=== PATIENT | male | born 1990 | race Caucasian/White ===

== ENCOUNTER 2016-11-05 11:13 | Emergency (ER) | payer MEDICAID ==
[~2016-11-05] VITALS: Ht 182.9 cm; Wt 114.3 kg
--- NOTE | 2016-11-05 12:38 | [facility]gent Treatment [facility] Report ---
History of Present Issue Date/Time Seen by Provider 11/05/16 1222 Visit Reason Pt arrived:Walked Presenting Problem:PT C/O SNEEZING, WATERY EYES, AND HEAD CONGESTION X3 DAYS Location if Accident: Onset of symptoms date/time:/ or onset unknown for:MEDICAL HX UNKNOWN Have you (or family members/close friends) recently traveled outside the [place]? N If Yes, where/when: Have you had exposure to infectious disease within the past month? TB? Other? Specify: Here w/ mom requesting steroid shot for persistant allergies. "He is just like his dad and that is all that works". c/o persistant runny nose, nasal congestion , sneezing "over 30 times a day", itchy eyes x "weeks and weeks". Was seen in clinic over 2 weeks ago for same symptoms. Dx allergies. Prescribed claritin and flonase. Claritin hasn't helped. Didn't try flonase. "They have told me to take that before but it taste like hong and gets in my throat. i don't like it.". reports trying "everything available over the counter" but can't recall anything tried other than claritin D. Adament a steroid injection is needed and mom even reports "I know about the risk and side effects but he is like his dad and won't get better without it." Denies fever, aches, chills. Source patient, family Exam Limitations no limitations ALLERGIES Coded Allergies: No Known Allergies (10/20/16) Home Medications Active Scripts Fluticasone Propionate (Flonase Allergy Relief) 9.9 ML NS DAILY 14 Days Prov: 10/20/16 Loratadine (Claritin 10MG) 10 MG PO DAILY 14 Days Prov: 10/20/16 MUPIROCIN 2% (Bactroban Oint) 1 DELL TP BID #1 TUBE Prov: 08/29/15 Amoxicillin/Potassium Clav (Augmentin 875-125 Tablet) 1 EACH PO BID #20 TAB Prov: 08/29/15 Reported Medications Risperidone 1 PO QHS Atomoxetine Hydrochloride (Strattera) 1 PO DAILY Betamethasone Valerate (Betamethasone Virginie.) History Medical History General CAD? No Angina: No ID: No Hypertension? No Hyperlipidemia? No CHF? No DVT? No PE? No COPD? No Asthma? No Anemia? No GERD? No Gastric ulcers? No GI Bleed? No Hernia? No Thyroid Problems? No Hypothyroidism? No CVA? No Seizures? No Diabetes? No Renal Insuffiency? No UTI? No Stones? No BPH? No GB Disease: No Nephritic Syndrome? No Asplenia? No Hepatitis? No Sickle Cell Disease? No Arthritis? No Migraines? No Cataracts? No Glaucoma? No MRSA? No HIV? No TB? No Anxiety? No Depression? No Cancer? No More? No Immunization HX DT/Tetanus Unknown Flu REFUSES Pneumonia REFUSES Surgical Hx Previous Surgery?Y WISDOM TEETH BACK/CYST Family History Family HX Diabetes No CAD No Hypertension Yes Hyperlipidemia Yes Cancer No TB No Social History Smoking Hx Smoker: Current Every Day Smoker Tobacco: Yes Type Cigarettes Packs/day < 1 Pack Alcohol Alcohol: No Review of Systems All Other Systems Reviewed and Negative Constitutional see HPI Eyes see HPI, drainage (watery, no redness), denies pain, denies photophobia, denies vision change ENT see HPI. denies: ear pain, throat pain, throat swelling. Respiratory denies cough Gastrointestinal denies no symptoms reported Skin denies rash Psychiatric/Neurological denies headache Physical Exam Vital Signs Vital Signs Date Time Temp Pulse Resp B/P Pulse O2 O2 Flow FiO2 Ox Delivery Rate 11/05 1332 97.9 95 20 138/81 98 11/05 1205 97.9 95 20 138/81 98 General Appearance normal appearance, no apparent distress Eye Exam - bilateral eye normal exam Ear, Nose, Throat normal ENT inspection (x/ mild nasal congestion) Neck non-tender, supple Respiratory Status No: respiratory distress, productive cough, non productive cough. Lung Sounds anterior: lungs clear. posterior: lungs clear. bilateral: lungs clear. Cardiovascular regular rate/rhythm, no peripheral edema, no murmur Neurologic alert, oriented x 3 Mental status normal mood/affect Skin normal color, warm/dry Lymphatic no adenopathy Medical Decision Making LABS/Meds/Orders Pt receiving controlled substance in ED? No Results/Orders Current Medication Orders Sig/Rayo Start time Last Medication Dose Route Stop Time Status Admin Methylprednisolone 0 .STK-MED ONE 11/05 1253 DC Acetate IM Methylprednisolone 40 MG ONCE ONE 11/05 1245 DC 11/05 Acetate IM 11/05 1246 1326 Departure Departure Time of Disposition 1233 Disposition DC Home or Self Care(routine) Clinical Impression Primary Impression: Allergic rhinitis Qualifiers: Chronicity: acute Allergic rhinitis trigger: unspecified Allergic rhinitis seasonality: seasonal Qualified Code: J30.2 - Other seasonal allergic rhinitis Condition STABLE Referrals ANDRES BEND[facility] in [facility] for new, worsening, persistant symptoms despite treatment Patient Instructions DI for Allergic Rhinitis Additional Instructions * Steroids are not the treatment of choice for allergies. It does help calm them down but they will return. Steroids have side effects and risks as we discussed. They are not to be used over and over for allergy symptoms. Consider steroids like a band-aid for your problem. if you don't take medication to treat your allergies, the symptoms will return. * If claritin didn't help, try zyrtec daily for 7-14 days. You can also add a nasal steroid spray (flonase, nasonex, nasocort) like was previously recommended. I understand it smells and taste like hong but you only have to do it once a day and can drink immediately afterwards. * Avoid known allergens * If still no improvement, consider follow up with local pilot can router, Dr. Bender. Discharge Counseling Counseled pt/family regarding diagnosis, medications/RX, home care, follow up needs Prescriptions Current Visit Scripts CETIRIZINE HCL (Cetirizine 10MG) 10 MG PO DAILY #30 TAB at 1100
[2016-11-05 13:32] VITALS: BP 138/81
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
--- OUTSIDE RECORDS SUMMARY | 2016-11-28 03:30 | External Medical Summary Rpt ---
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 Name Role Phone JACQUELINALEKSANDR JULIANN, ELIO Unavailable Unavailable JUAN A [place], Unavailable Unavailable JUAN A [facility] Unavailable Unavailable [facility] MIS, SAAVEDRA MIS Unavailable Unavailable [facility] Unavailable [place]available [place] [facility] [place] [facility] Unavailable [place] [facility] JAMIE ANGELES, Unavailable Unavailable JAMIE ANGELES STEPHANIE TONYA, STEPHANIE Unavailable Unavailable TONYA HAAKE BRA, HAAKE BRA Unavailable Unavailable HAAKE BRA, HAAKE BRA Unavailable Unavailable [facility], [facility] BNOI NAN, BONI Unavailable Unavailable NAN BONI NAN, BONI Unavailable Unavailable [facility] Un[facility] Un[facility], [facility] Unavailable Unavailable [facility], [facility] Unavailable Unavailable [facility], [facility] Unavailable Unavailable SERVICES, [facility] CAMILLE LAWRENCE, Unavailable Unavailable JOSSUE CAMILO JR, JR Unavailable Unavailable F, JOSSUE OBRIEN JR [facility], Unavailable [facility]available [facility], [facility] PUJA ROSE, Unavailable Unavailable PUJA LUO ORSE, Unavailable Unavailable JONATHANSTAD ROSE KYLE WANG, Unavailable [...] 11-16-2015 [facility] [place] BREATHING INTERNAL MED [id number] OPEN BITE 08-29-2015 [facility] INDEX [facility] FINGER W/O INC DAMAGE NAIL INIT [id number] OPEN BITE 08-29-2015 [facility] UNS FINGER PHYSICIANS, W/O DAMAGE [facility] NAIL INITIAL 1104 DERMATOPHYT 01-27-2014 [facility] FOOT INTERNAL MED 6829 CELLULITIS 01-27-2014 [facility] ABSCESS [facility] OF INTERNAL UNSPECIFIED MED SITE 57083 UNSPECIFIED 10-14-2013 [facility] CONJUNCTIVI INTERNAL TIS MED 4778 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 486 PNEUMONIA, 07-26-2013 HAAKE BRA ORGANISM UNSPECIFIED 7862 COUGH 07-26-2013 [facility] 6850 PILONIDAL 04-11-2012 [facility] CYST WITH [facility] ABSCESS INC 6851 PILONIDAL 03-28-2012 [facility] CYST ANESTH OF WITHOUT THE BLUE MENTION OF ABSCESS 460 ACUTE 07-20-2011 [facility] RODRIGUEZ NASOPHARYNG ITIS 490 BRONCHITIS 07-20-2011 [facility] RODRIGUEZ NOT SPECIFIED ACUTE OR CHRONIC 5589 OTH&UNSPEC 05-08-2011 [facility] RODRIGUEZ NONINFECTIO US GASTROENTER ITIS&COLITI S V5831 ENCOUNTER 02-14-2011 [facility] JULITEA SERVICES SURGICAL WOUND DRESSING 10013 ABDOMINAL 11-08-2010 [facility] PAIN RIGHT [place] UPPER INTERNAL QUADRANT MEDI 5758 OTHER 10-06-2009 [facility] SPECIFIED [facility] DISORDER OF INC GALLBLADDER 5759 UNSPECIFIED 10-06-2009 [place] [facility] IMAGING ASS GALLBLADDER 58433 ESOPHAGEAL 09-19-2009 [facility] REFLUX [facility] INC 7873 FLATULENCE 09-19-2009 [facility] ERUCTATION [facility] AND GAS INC PAIN 5283 CELLULITIS 02-04-2009 [facility] [place] [place] OF ORAL INTERNAL SOFT MED TISSUES 35975 REGULAR 01-21-2009 J[facility] ASTIGMATISM VISION 3829 UNSPECIFIED [...] 17 17 98 E 5 55 PH ND AR OP MA CY 50 OF MC [...] UM 65 4- 8- 00 SI 46 DC ve 04 [address] 03 11 11 JR 1 PH 40 AR WI MA LL MG CY IA M CA OF F PS UL CY E NT HI AN A AD 54 10 10 0 30 30 EA 24 MC Ac DE 09 -2 -[address] 67 KE ti RA 20 4- 6- 00 SI 38 DC ve LL 39 20 20 DE E 10 11 11 JR XR 1 PH AR WI 30 MA LL CY IA MG M OF F CA PS CY UL NT E HI AN A RI 50 10 10 3 30 30 EA 24 MC Ac SP 45 -2 -[address] 63 KE ti ER 80 4- 4- 00 SI 23 DC ve ID 59 20 20 DE E [...] RA 20 6- 6- 00 SI 61 DC ve LL 39 20 20 DE E 10 11 11 JR XR 1 PH AR WI 30 MA LL CY IA MG M OF F CA PS CY UL NT E HI AN A RI 50 07 07 3 30 30 EA 23 MC Ac SP 45 -1 -[address] 30 KE ti ER 80 4- 4- 00 SI 45 DC ve ID 59 20 20 DE E ON 16 11 11 JR E 0 PH 0. AR WI 5 MA LL MG CY IA M TA OF F BL ET CY NT HI AN A NE 00 07 07 3 30 30 EA 23 MC Ac XI 18 -1 -[address] 30 KE ti UM 65 4- 4- 00 SI 46 DC ve 04 [address] [...] RA 20 4- 4- 00 SI 30 DC ve LL 39 20 20 DE E [...] ti RA 20 9 6 SI 69 DC ve LL 39 20 20 DE E 10 10 10 JR XR 1 PH AR WI 30 MA LL CY IA MG M OF F CA CY PS NT UL HI E AN A AD 54 12 01 00 30 30 EA 15 MC Ac DE 2 -[address] 76 KE ti RA 20 SI 17 DC ve LL 39 20 20 DE E 10 09 10 JR XR 1 PH AR WI 30 MA LL CY IA MG M OF F CA CY PS NT UL HI E AN A ST 00 12 01 00 30 30 EA 15 MC Ac RA 00 -2 -[address] 74 KE ti TT 23 8 4 00 SI 69 DC ve ER 22 20 20 DE E A 93 09 10 JR 40 0 PH AR WI MG MA LL CY IA CA M PS OF F UL CY E NT HI AN A RI 50 12 01 00 30 30 EA 15 Ac SP 45 -2 -[address] 74 KE ti ER 80 8- 4 00 SI 70 DC ve ID 59 20 20 DE E ON 16 09 10 JR E 0 PH 0. AR WI 5 MA LL MG CY IA M TA OF F BL CY ET NT HI AN A MU 00 12 12 00 22 10 EA 15 Ac PI 09 -1 -[address] 64 KE ti RO 31 8- 00 SI 13 DC ve CI 01 20 20 DE E N 04 09 09 JR 2% 2 PH AR WI OI MA LL NT CY IA ME M NT OF F CY NT HI AN A 00 12 12 00 20 10 EA 15 MC Ac 90 -1 -[address] 64 KE ti 42 8- - 00 SI 12 DC ve 72 20 20 DE E 54 [...] -C 32 7- 3- 00 SI 04 DC ve LA 27 20 20 DE E V 53 09 09 JR 87 4 PH 5- AR WI 12 MA LL 5 CY IA MG M OF F TA CY BL NT ET HI AN A AD 54 11 11 00 30 30 EA 15 MC Ac DE 09 -0 -[address] 04 KE ti RA 20 9- 9- 00 SI 70 DC ve LL 39 20 20 DE E 10 09 09 JR XR 1 PH AR WI 30 MA LL CY IA MG M OF F CA CY PS NT UL HI E AN A AD 54 09 10 00 30 30 EA 14 MC Ac DE 09 -2 -[address] 43 KE ti RA 20 6- 8- 00 SI 63 DC ve LL 39 20 20 DE E 10 09 09 JR XR 1 PH AR WI 30 MA LL CY IA MG M OF F CA CY PS NT UL HI E AN A AD 54 08 08 00 30 30 EA 13 MC Ac DE 09 -1 -[address] 91 KE ti RA 20 9- 7- 00 SI 63 DC ve LL 39 20 20 DE E 10 09 09 JR XR 1 PH AR WI 30 MA LL CY IA MG M OF F CA CY PS NT UL HI E AN A ST 00 08 08 00 30 30 EA 13 MC Ac RA 00 -1 -[address] 84 KE ti TT 23 4- 7- 00 SI 93 DC ve ER 22 20 20 DE E A 93 09 09 JR 40 0 PH AR WI MG MA LL CY IA CA M PS OF F UL CY E NT HI AN A RI 50 08 08 00 30 30 EA 13 MC Ac SP 45 -1 -[address] 84 KE ti ER 80 4- 7- 00 SI 94 DC ve ID 59 20 20 DE E ON 16 09 09 JR E 0 PH 0. AR WI 5 MA LL MG CY IA M TA OF F BL CY ET NT HI AN A AD 54 06 07 00 30 30 EA 13 MC Ac DE 09 -1 -[address] 18 KE ti RA 20 8- 2- 00 SI 66 DC ve LL 39 20 20 DE E 10 09 09 JR XR 1 PH AR WI 30 MA LL CY IA MG M OF F CA CY PS NT UL HI E AN A RI 50 06 06 00 30 30 EA 13 Ac SP 45 -0 -[address] 04 KE ti ER 80 7- 8- 00 SI 65 DC ve ID 59 20 20 DE E ON 16 09 09 JR E 0 PH 0. AR WI 5 MA LL MG CY IA M TA OF F BL CY ET NT HI AN A ST 00 01 06 02 30 30 EA 11 Ac RA 00 -1 -[address] 12 KE ti TT 23 6- 8- 00 SI 68 DC ve ER 22 20 20 DE E A 93 09 09 JR 40 0 PH AR WI MG MA LL CY IA CA M PS OF F UL CY E NT HI AN A AD 54 05 05 00 30 30 EA 12 Ac DE 09 -0 -[address] 65 KE ti RA 20 7- 1- 00 SI 25 DC ve LL 39 20 20 DE E 10 09 09 JR XR 1 PH AR WI 30 MA LL CY IA MG M OF F CA CY PS NT UL HI E AN A ST 00 01 05 01 30 30 EA 11 Ac RA 00 -1 -[address] 12 KE ti TT 23 6- 7- 00 SI 68 DC ve ER 22 20 20 DE E A 93 09 09 JR 40 0 PH AR WI MG MA LL CY IA CA M PS OF F UL CY E NT HI AN A RI 50 05 05 02 30 30 EA 98 Ac SP 45 -2 -[address] 05 KE ti ER 80 0- 7- 00 SI 91 DC ve ID 59 20 20 DE E ON 08 09 JR E 0 PH 0. AR WI 5 MA LL MG CY IA M TA OF F BL CY ET NT HI AN A DE 00 04 04 00 30 30 EA 12 Ac XT 55 -0 -[address] 21 KE ti RO 50 6- 3- 00 SI 75 DC ve AM 78 20 20 DE E P- 90 09 09 JR AM 2 PH PH AR WI ET MA LL CY IA ER M OF F 30 CY NT MG HI AN CA A P NA 00 03 03 00 17 17 EA 11 Ac SO 08 -0 -[address] 73 KE ti NE 51 3- 2- 00 SI 06 DC ve X 28 20 20 DE E 50 80 09 09 JR 1 PH MC AR WI G MA LL NA CY IA SA M L OF F SP CY RA NT Y HI AN A AD 54 02 03 00 30 30 EA 11 MC Ac DE 09 -2 -[address] 60 KE ti RA 20 4- 2- 00 SI 65 DC ve LL 39 20 20 DE E 10 09 09 JR XR 1 PH AR WI 30 MA LL CY IA MG M OF F CA CY PS NT UL HI E AN A 67 03 03 00 20 10 EA 11 MC Ac 25 -0 -[address] 73 KE ti 30 3- 2- 00 SI 07 DC ve 00 20 20 DE E 76 09 09 JR 0 PH AR WI MA LL CY IA M OF F CY NT HI AN A 00 02 02 00 3. 3 EA 11 MC Ac 09 -1 -[address] 50 KE ti 39 6- 6- 0 SI 39 DC ve 10 20 20 DE E 72 09 09 JR 9 PH AR WI MA LL CY IA M OF F CY NT HI AN A AD 54 01 01 00 30 30 EA 11 MC Ac DE 09 -1 -[address] 12 KE ti RA 20 6- 0- 00 SI 67 DC ve LL 39 20 20 DE E 10 09 09 JR XR 1 PH AR WI 30 MA LL CY IA MG M OF F CA CY PS NT UL HI E AN A SM 49 01 01 00 59 1 EA 11 MC Ac 34 -2 -[address] 21 KE ti LI 80 3- 0- 00 SI 44 DC ve CE 46 20 20 DE E [...] TT 23 6- 0- 00 SI 68 DC ve ER 22 20 20 DE E [...] RA 20 8- 8- 00 SI 37 DC ve LL 39 20 20 DE E 10 08 08 JR XR 1 PH AR WI 30 MA LL CY IA MG M OF F CA CY PS NT UL HI E AN A BE 00 10 11 00 60 5 EA 10 MC Ac TA 16 -3 -[address] 07 KE ti ME 80 0- 7- 00 SI 35 DC ve TH 04 20 20 DE E 16 08 08 JR ON 0 PH E AR WI VA MA LL CY IA 0. M 1% OF F CY LO NT TI HI ON AN A MU 00 10 11 00 22 7 EA 99 MC Ac PI 09 -2 -[address] 96 KE ti RO 31 2- 7- 00 SI 61 DC ve CI 01 20 20 DE E N 04 08 08 JR 2% 2 PH AR WI OI MA LL NT CY IA ME M NT OF F CY NT HI AN A AD 54 10 11 00 30 30 EA 10 MC Ac DE 09 -2 -[address] 06 KE ti RA 20 9- 7- 00 SI 25 DC ve LL 39 20 20 DE E [...] DOS Code Location Performer Comment IM ADM 12961 [facility] PRQ ID 6 [facility] SUBQ/IM INC INC NJXS 1 VACCINE RADIOLOGI 89738 HAAKE BRA HARIK BRA C EXAM 4 CHEST 2 VIEWS FRONTAL&L [facility] [address] BESSON BESSON DISCHARGE 3 JULIANN JULIANN DAY MANAGEMEN T 30 MIN/< ANES 61635 [facility] INTEG 3 ANESTH THUY MUSC & OF THE NRV HEAD BLUE NECK&POST ERIOR TRUNK INCISION 82088 PUJA PUJA & 3 ROSE ROSE DRAINAGE PILONIDAL CYST COMPLICAT ED SBSQ 91116 [facility] 3 JR MELINDA LAWRENCE CARE/DAY 25 MINUTES INCISION 8603 [facility] OF 3 [facility] PILONIDAL INC INC SINUS OR CYST INITIAL 10516 [facility] 3 JR MELINDA RIVAS MELINDA CARE/DAY 50 MINUTES INCISION 72500 JONATHANBRADY PUJA & 1 ROSE ROSE DRAINAGE ABSCESS SIMPLE/SI NGLE HEPATBL 20456 [facility] DUX SYS 0 [facility] [place] [address] [facility] ABDOMINAL 0 [facility] REAL INC INC TIME W/IMAGE DOCUMENTA TION SUSCEPTIB 78477 [facility] LTY STDY 9 [facility] ANTIMICRB INC INC IAL MICRO/AGA R DILUTJ SUSCEPTIB 11556 [facility] ILITY 9 [facility] STUDY INC INC ANTIMICRO BIAL DISK METHOD CUL BACT 80011 [facility] XCPT 9 [facility] URINE INC INC BLOOD/STO OL AEROBIC ISOL CUL BACT 45332 [facility] AEROBIC 9 [facility] ADDL INC INC METHS DEFINITIV E EA ISOL OPHTH 22381 JEN WANG, [facility] 9 VISION KYLE M XM&EVAL ALYSON NEW PT 1/> VST Encounters Encounter Start End Date Code Location Performer Type Date OFFICE 58595 [facility] OUTPATIEN 6 6 [facility] T VISIT INTERNAL 15 MED MINUTES EMERGENCY 03032 LETA BROWN 6 6 [facility]ICIAN [facility] T VISIT MODERATE SEVERITY EMERGENCY 01989 [facility] 6 6 [facility] DEPARTMEN INC T VISIT LOW/MODER SEVERITY [facility]OSP[facility] - 6 6 [facility] OUTPATIEN INC T OFFICE 88701 [facility] 4 [facility] T VISIT INTERNAL 15 MED MINUTES OFFICE 48133 [facility] JAMIE OUTPATIEN 4 4 [facility] ANGELES T VISIT INTERNAL 15 MED MINUTES EMERGENCY 02813 HAAKE BRA HAAKE BRA 4 4 [facility] T VISIT HIGH/URGE NT SEVERITY OFFICE 65695 [facility] AYALA OUTPATIEN 3 3 [facility] T VISIT 15 MINUTES [facility] - 3 3 [facility] OUTPATIEN INC T OFFICE 99072 [facility] 3 3 [facility] T VISIT 5 INC MINUTES OFFICE 76438 [facility]PAT[facility]EN 3 3 [facility] T VISIT 5 INC MINUTES [facility]OSPITAL [facility] - 3 3 [facility] OUTPATIEN INC T [facility] - 3 3 [facility] OUTPATIEN INC T OFFICE 56211 [facility] 3 3 [facility] T VISIT 5 INC MINUTES OFFICE 72338 [facility]EN 3 3 [facility] T VISIT INC 10 MINUTES OFFICE 60331 [facility] 3 3 [facility] T VISIT 5 INC MINUTES [facility]OSPITAL [facility] - 3 3 [facility] OUTPATIEN INC T OFFICE 71963 [facility] 3 3 [facility] T VISIT 5 INC MINUTES [facility]OSP[facility] - 3 3 [facility] OUTPATIEN INC T OFFICE 32390 [facility] 3 3 [facility] T VISIT 5 INC MINUTES [facility]OSPITAL [facility] - 3 3 [facility] OUTPATIEN INC T OFFICE 03727 [facility] 3 3 [facility] T VISIT 5 INC MINUTES [facility]OSPITAL [facility] - 3 3 [facility] OUTPATIEN INC T OFFICE 22706 [facility] 3 3 [facility] T VISIT 5 INC MINUTES [facility]OSP[facility] - 3 3 [facility] OUTPATIEN INC T OFFICE 16061 [facility] 3 3 [facility] T VISIT INC 10 MINUTES OFFICE 02873 [facility] 3 3 [facility] T VISIT 5 INC MINUTES [facility]OSP[facility] - 3 3 [facility] OUTPATIEN INC T [facility] - 3 3 [facility] OUTPATIEN INC T OFFICE 51601 [facility] 3 3 [facility] T VISIT 5 INC MINUTES OFFICE 63679 [facility] 3 3 [facility] T VISIT 5 INC MINUTES [facility]OSP[facility] - 3 3 [facility] OUTPATIEN INC T OFFICE 42390 [facility] 3 3 [facility] T VISIT 5 INC MINUTES [facility]OSPITAL [facility] - 3 3 [facility] OUTPATIEN INC T OFFICE 49459 [facility] 3 3 [facility] T VISIT INC 15 MINUTES [facility]OSPITAL [facility] - 3 3 [facility] OUTPATIEN INC T OFFICE 40494 [facility] OUTPATIEN 3 3 [facility] T VISIT INC 10 MINUTES HOSPITAL [facility] - 3 3 [facility] INPATIENT INC OFFICE 66168 [facility] OUTPATIEN 2 2 NAN NAN T VISIT 15 MINUTES OFFICE 29007 [facility] OUTPATIEN 2 2 NAN NAN T VISIT 15 MINUTES OFFICE 62867 PUJA CASTILLOSTBRADY OUTPATIEN 2 2 ROSE ROSE T VISIT 10 MINUTES EMERGENCY 55806 [facility] 1 1 [facility] DEPARTMEN INC T VISIT LOW/MODER SEVERITY EMERGENCY 80919 ANDRES SOKAN BAB 1 1 EMERGENCY DEPARTMEN SERVICES T VISIT MODERATE SEVERITY [facility]OSPITAL [facility] - 1 1 [facility] OUTPATIEN INC T OFFICE 12737 [facility] JAMIE OUTPATIEN 1 1 GENOA ANGELES T VISIT INTERNAL 15 MEDI MINUTES [facility]OSPITAL [facility] - 0 0 [facility] OUTPATIEN INC [facility] - 0 0 [facility] OUTPATIEN INC T OFFICE 15507 [facility] BONI OUTPATIEN 0 0 GENOA JENNIFER T VISIT INTERNAL 15 MEDI MINUTES HOSPITAL [facility] - 9 9 [facility] T OFFICE 23929 [facility] [place] OUTPATIEN 9 9 [facility], T VISIT INTERNAL JOSSUE F 15 MED MINUTES OFFICE 01576 [facility], OUTPATIEN 9 9 GENOA JUAN A A T VISIT INTERNAL 15 MED MINUTES OFFICE 18056 [facility], OUTPATIEN 9 9 GENOA JUAN A A T VISIT INTERNAL 15 MED MINUTES OFFICE 64021 [facility], OUTPATIEN 8 8 GENOA JUAN A A T VISIT INTERNAL 15 MED MINUTES OFFICE 18493 [facility], OUTPATIEN 8 8 GENOA JUAN A A T VISIT INTERNAL 15 MED MINUTES
--- OUTSIDE RECORDS SUMMARY | 2016-11-28 03:32 | External Medical Summary Rpt ---
Author Author , JOEL MALDONADO Address Unknown Phone [email or web address] Care Team Providers Care Crop And Soil Technician Name Role Phone ELIO GOLDMAN Unavailable Unavailable JUAN A [place], Unavailable Unavailable [facility] Unavailable Unavailable [facility] JUNAID ZENA, Unavailable Unavailable JUNAID ZENA SAAVEDRA MIS, SAAVEDRA MIS Unavailable Unavailable [facility] Unavailable [place]available [place] [facility] [place] [facility] [place] [facility] JAMIE ANGELES, Unavailable Unavailable JAMIE ANGELES STEPHANIE TONYA, STEPHANIE Unavailable Unavailable TONYA HAAKE BRA, HAAKE BRA Unavailable Unavailable HAAKE BRA, HAAKE BRA Unavailable Unavailable [facility], [facility] BONI NAN, BONI Unavailable Unavailable NAN BONI NAN, BONI Unavailable Unavailable [facility] Unavailable Unavailable [facility], [facility] LICKING WILLIAMS Unavailable Unavailable INTERNAL MED, [facility] WILLIAMS Unavailable Unavailable [facility], [facility] Unavailable Unavailable SERVICES, [facility] CAMILLE LAWRENCE, Unavailable Unavailable JOSSUE CAMILO JR, JR Unavailable Unavailable F, JOSSUE OBRIEN JR PHYSICIANS, Unavailable Unavailable RAYNEC, LETA PHYSICIANS, RAYNEC PUJA ROSE, Unavailable Unavailable SCHULSTAD ROSE PUJA ROSE, Unavailable Unavailable JONATHANSTKYLE FRIEND, Unavailable Unavailable KYLE WANG SOJONEN BAB, SOKAN BAB Unavailable Unavailable OSCAR FINK, Unavailable Unavailable OSCAR DALEY, HENRY Unavailable Unavailable THUY Purpose Continuity of Care Document - 05-13-2007 through 2016 Problems Code Diagnosis DOS Provider Status J309 ALLERGIC 11-16-2015 [facility] UNSPECIFIED INTERNAL MED R062 WHEEZING 11-16-2015 [facility] INTERNAL MED R071 CHEST PAIN 11-16-2015 [facility] [place] BREATHING INTERNAL MED [id number] OPEN BITE 08-29-2015 [facility] FINGER W/O INC DAMAGE NAIL INIT [id number] OPEN BITE 08-29-2015 [facility] FINGER PHYSICIANS, W/O DAMAGE PLLC NAIL INITIAL 1104 DERMATOPHYT 01-27-2014 [facility] FOOT INTERNAL MED 6829 CELLULITIS 01-27-2014 [facility] AND ABSCESS [facility] OF INTERNAL UNSPECIFIED MED SITE 48357 UNSPECIFIED 10-14-2013 [facility] CONJUNCTIVI INTERNAL TIS MED 4778 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 486 PNEUMONIA, 07-26-2013 HAAKE BRA ORGANISM UNSPECIFIED 7862 COUGH 07-26-2013 [facility] 6850 PILONIDAL 04-11-2012 [facility] ABSCESS INC 6851 PILONIDAL 03-28-2012 [facility] CYST ANESTH OF WITHOUT THE BLUE MENTION OF ABSCESS 460 ACUTE 07-20-2011 B[facility] RODRIGUEZ NASOPHARYNG ITIS 490 BRONCHITIS 07-20-2011 [facility] RODRIGUEZ NOT SPECIFIED ACUTE OR CHRONIC 5589 OTH&UNSPEC 05-08-2011 [facility] RODRIGUEZ NONINFECTIO US GASTROENTER ITIS&COLITI S V5831 ENCOUNTER 02-14-2011 [facility] JULIETA SERVICES SURGICAL WOUND DRESSING 77923 ABDOMINAL 11-08-2010 [facility] PA[facility] RIGHT [place] UPPER INTERNAL QUADRANT MEDI 5758 OTHER 10-06-2009 [facility] DISORDER OF INC GALLBLADDER 5759 UNSPECIFIED 10-06-2009 [facility] DISORDER MEDICAL OF IMAGING ASS GALLBLADDER 34728 ESOPHAGEAL 09-19-2009 [facility]UX [facility] 7873 FLATULENCE 09-19-2009 [facility] ERUCTATION [facility] AND GAS INC PAIN 5283 CELLULITIS 02-04-2009 [facility] [place] [place] OF ORAL INTERNAL SOFT MED TISSUES 92101 REGULAR 01-21-2009 JEN ASTIGMATISM VISION 3829 UNSPECIFIED [...] 17 17 98 E 5 55 PH MT AR OP MA CY 50 OF MC [...] UM 65 4- 8- 00 SI 46 OR ve 04 [address] 03 11 11 JR 1 PH 40 AR WI MA LL MG CY IA M CA OF F PS UL CY E NT HI AN A AD 54 10 10 0 30 30 EA 24 MC Ac DE 09 -2 -[address] 67 KE ti RA 20 4- 6- 00 SI 38 OR ve LL 39 20 20 DE E 10 11 11 JR XR 1 PH AR WI 30 MA LL CY IA MG M OF F CA PS CY UL NT E HI AN A RI 50 10 10 3 30 30 EA 24 MC Ac SP 45 -2 -[address] 63 KE ti ER 80 4- 4- 00 SI 23 OR ve ID 59 20 20 DE E ON 16 11 11 JR E 0 PH 0. AR WI 5 MA LL MG CY IA M TA OF F BL ET CY NT HI AN A AD 54 09 09 0 30 30 EA 24 BE Ac DE 09 -1 -[address] [...] RA 20 6- 6- 00 SI 61 OR ve LL 39 20 20 DE E 10 11 11 JR XR 1 PH AR WI 30 MA LL CY IA MG M OF F CA PS CY UL NT E HI AN A RI 50 07 07 3 30 30 EA 23 MC Ac SP 45 -1 -[address] 30 KE ti ER 80 4- 4- 00 SI 45 OR ve ID 59 20 20 DE E ON 16 11 11 JR E 0 PH 0. AR WI 5 MA LL MG CY IA M TA OF F BL ET CY NT HI AN A NE 00 07 07 3 30 30 EA 23 MC Ac XI 18 -1 -[address] 30 KE ti UM 65 4- 4- 00 SI 46 OR ve 04 [address] 03 11 11 JR 1 PH 40 AR WI MA LL MG CY IA M CA OF F PS UL CY E NT HI AN A AD 54 05 05 0 30 30 EA 22 BE Ac DE 09 -0 -[address] 36 SS ti RA 20 3 3 00 SI 44 ON ve LL 39 20 20 DE [address] XR 1 PH EP AR HE 30 MA N CY A MG OF CA PS CY UL NT E HI AN A AD 54 03 03 0 30 30 EA 21 BE Ac DE 09 -3 -[address] 93 SS ti RA 20 SI 09 ON ve LL 39 20 [...] 7. ST 48 SS ti ET 10 SI 08 ON ve HY 45 20 [...] .0 ST 71 KE ti RA 20 4 4 00 SI 30 OR ve LL 39 20 20 DE E 10 10 10 JR XR 1 PH AR WI 30 MA LL CY IA MG M OF F CA PS CY UL NT E HI AN A AD 54 05 05 0 30 30 EA 17 BE Ac DE 09 -2 -[address] 75 SS ti RA 20 6- 6 00 SI 18 ON ve LL 39 [...] 30 30 EA 16 MC Ac DE 09 -1 -[address] 44 KE ti RA 20 9- 6 SI 69 OR ve LL 39 20 20 DE E 10 10 10 JR XR 1 PH AR WI 30 MA LL CY IA MG M OF F CA CY PS NT UL HI E AN A ST 00 12 01 00 30 30 EA 15 MC Ac RA 00 -2 -[address] 74 KE ti TT 23 8- 4- 00 SI 69 OR ve ER 22 20 20 DE E A 93 09 10 JR 40 0 PH AR WI MG MA LL CY IA CA M PS OF F UL CY E NT HI AN A RI 50 12 01 00 30 30 EA 15 Ac SP 45 -2 -[address] 74 KE ti ER 80 8- 4 00 SI 70 OR ve ID 59 20 20 DE E ON 16 09 10 JR E 0 PH 0. AR WI 5 MA LL MG CY IA M TA OF F BL CY ET NT HI AN A AD 54 12 01 00 30 30 EA 15 MC Ac DE 09 -2 -[address] 76 KE ti RA 20 9- 4 00 SI 17 OR ve LL 39 20 20 DE E 10 09 10 JR XR 1 PH AR WI 30 MA LL CY IA MG M OF F CA CY PS NT UL HI E AN A 00 12 12 00 20 10 EA 15 MC Ac 90 -1 -[address] 64 KE ti 42 8- 1- 00 SI 12 OR ve 72 20 20 DE E 54 09 09 JR 0 PH AR WI MA LL CY IA M OF F CY NT HI AN A MU 00 12 12 00 22 10 EA 15 MC Ac PI 09 -1 -[address] 64 KE ti RO 31 8- 1- 00 SI 13 OR ve CI 01 20 20 DE E [...] -C 32 7- 3- 00 SI 04 OR ve LA 27 20 20 DE E V 53 09 09 JR 87 4 PH 5- AR WI 12 MA LL 5 CY IA MG M OF F TA CY BL NT ET HI AN A AD 54 11 11 00 30 30 EA 15 MC Ac DE 09 -0 -[address] 04 KE ti RA 20 9- 9- 00 SI 70 OR ve LL 39 20 20 DE E 10 09 09 JR XR 1 PH AR WI 30 MA LL CY IA MG M OF F CA CY PS NT UL HI E AN A AD 54 09 10 00 30 30 EA 14 MC Ac DE 09 -2 -[address] 43 KE ti RA 20 6- 8- 00 SI 63 OR ve LL 39 20 20 DE E 10 09 09 JR XR 1 PH AR WI 30 MA LL CY IA MG M OF F CA CY PS NT UL HI E AN A AD 54 08 08 00 30 30 EA 13 MC Ac DE 09 -1 -[address] 91 KE ti RA 20 9- 7- 00 SI 63 OR ve LL 39 20 20 DE E 10 09 09 JR XR 1 PH AR WI 30 MA LL CY IA MG M OF F CA CY PS NT UL HI E AN A ST 00 08 08 00 30 30 EA 13 MC Ac RA 00 -1 -[address] 84 KE ti TT 23 4- 7- 00 SI 93 OR ve ER 22 20 20 DE E A 93 09 09 JR 40 0 PH AR WI MG MA LL CY IA CA M PS OF F UL CY E NT HI AN A RI 50 08 08 00 30 30 EA 13 MC Ac SP 45 -1 -[address] 84 KE ti ER 80 4- 7- 00 SI 94 OR ve ID 59 20 20 DE E ON 16 09 09 JR E 0 PH 0. AR WI 5 MA LL MG CY IA M TA OF F BL CY ET NT HI AN A AD 54 06 07 00 30 30 EA 13 MC Ac DE 09 -1 -[address] 18 KE ti RA 20 8- 2- 00 SI 66 OR ve LL 39 20 20 DE E 10 09 09 JR XR 1 PH AR WI 30 MA LL CY IA MG M OF F CA CY PS NT UL HI E AN A ST 00 01 06 02 30 30 EA 11 Ac RA 00 -1 -[address] 12 KE ti TT 23 6- 8- 00 SI 68 OR ve ER 22 20 20 DE E A 93 09 09 JR 40 0 PH AR WI MG MA LL CY IA CA M PS OF F UL CY E NT HI AN A RI 50 06 06 00 30 30 EA 13 Ac SP 45 -0 -[address] 04 KE ti ER 80 7- 8- 00 SI 65 OR ve ID 59 20 20 DE E ON 16 09 09 JR E 0 PH 0. AR WI 5 MA LL MG CY IA M TA OF F BL CY ET NT HI AN A AD 54 05 05 00 30 30 EA 12 Ac DE 09 -0 -[address] 65 KE ti RA 20 7- 1- 00 SI 25 OR ve LL 39 20 20 DE E 10 09 09 JR XR 1 PH AR WI 30 MA LL CY IA MG M OF F CA CY PS NT UL HI E AN A ST 00 01 05 01 30 30 EA 11 Ac RA 00 -1 -[address] 12 KE ti TT 23 6- 7- 00 SI 68 OR ve ER 22 20 20 DE E A 93 09 09 JR 40 0 PH AR WI MG MA LL CY IA CA M PS OF F UL CY E NT HI AN A RI 50 05 05 02 30 30 EA 98 Ac SP 45 -2 -[address] 05 KE ti ER 80 0- 7- 00 SI 91 OR ve ID 59 20 20 DE E ON 16 08 09 JR E 0 PH 0. AR WI 5 MA LL MG CY IA M TA OF F BL CY ET NT HI AN A DE 00 04 04 00 30 30 EA 12 Ac XT 55 -0 -[address] 21 KE ti RO 50 6- 3- 00 SI 75 OR ve AM 78 20 20 DE E P- 90 09 09 JR AM 2 PH PH AR WI ET MA LL CY IA ER M OF F 30 CY NT MG HI AN CA A P NA 00 03 03 00 17 17 EA 11 Ac SO 08 -0 -[address] 73 KE ti NE 51 3- 2- 00 SI 06 OR ve X 28 20 20 DE E 50 80 09 09 JR 1 PH MC AR WI G MA LL NA CY IA SA M L OF F SP CY RA NT Y HI AN A AD 54 02 03 00 30 30 EA 11 MC Ac DE 09 -2 -[address] 60 KE ti RA 20 4- 2- 00 SI 65 OR ve LL 39 20 20 DE E 10 09 09 JR XR 1 PH AR WI 30 MA LL CY IA MG M OF F CA CY PS NT UL HI E AN A 67 03 03 00 20 10 EA 11 MC Ac 25 -0 -[address] 73 KE ti 30 3- 2- 00 SI 07 OR ve 00 20 20 DE E 76 09 09 JR 0 PH AR WI MA LL CY IA M OF F CY NT HI AN A 00 02 02 00 3. 3 EA 11 Ac 09 -1 -[address] 50 KE ti 39 6- 6- 0 SI 39 OR ve 10 20 20 DE E 72 09 09 JR 9 PH AR WI MA LL CY IA M OF F CY NT HI AN A SM 49 01 01 00 59 1 EA 11 Ac 34 -2 -[address] 21 KE ti LI 80 3- 0- 00 SI 44 OR ve CE 46 20 20 DE E 03 09 09 JR TR 0 PH EA AR WI TM MA LL EN CY IA T M PE OF F RM CY ET NT HR HI IN AN A AD 54 01 01 00 30 30 EA 11 MC Ac DE 09 -1 -[address] 12 KE ti RA 20 6- 0- 00 SI 67 OR ve LL 39 20 20 DE E 10 09 09 JR XR 1 PH AR [place] 30 MA LL CY IA MG M OF F CA CY PS NT UL HI E AN A ST 00 01 01 00 30 30 EA 11 Ac RA 00 -1 -[address] 12 KE ti TT 23 6- 0- 00 SI 68 OR ve ER 22 20 20 DE E A 93 09 09 JR 40 0 PH AR WI MG MA LL CY IA CA M PS OF F UL CY E NT HI AN A 60 12 01 00 24 6 EA 10 HU Ac 25 -1 -[address] 76 NT ti 80 9- 1- 00 SI 54 ER ve 23 20 20 0 DE 91 08 09 NA 6 PH NC AR Y MA C CY OF CY NT HI AN A AM 00 12 [...] NT E HI AN A AD 54 12 12 00 30 30 EA 10 MC Ac DE 09 -0 -[address] 59 KE ti RA 20 8- 8- 00 SI 37 OR ve LL 39 20 20 DE E 10 08 08 JR XR 1 PH AR WI 30 MA LL CY IA MG M OF F CA CY PS NT UL HI E AN A MU 00 10 11 00 22 7 EA 99 MC Ac PI 09 -2 -[address] 96 KE ti RO 31 2- 7- 00 SI 61 OR ve CI 01 20 20 DE E N 04 08 08 JR 2% 2 PH AR WI OI MA LL NT CY IA ME M NT OF F CY NT HI AN A BE 00 10 11 00 60 5 EA 10 MC Ac TA 16 -3 -[address] 07 KE ti ME 80 0- 7- 00 SI 35 OR ve TH 04 20 20 DE E 16 08 08 JR ON 0 PH E AR WI VA MA LL CY IA 0. M 1% OF F CY LO NT TI HI ON AN A AD 54 10 11 00 30 30 EA 10 MC Ac DE 09 -2 -[address] 06 KE ti RA 20 9- 7- 00 SI 25 OR ve LL 39 20 20 DE E [...] HI E AN A RI 50 05 06 00 30 30 EA 98 No Ac SP 45 -2 -[address] 05 t ti ER 80 0- 5- 00 SI 91 Av ve DA 30 20 20 DE ai L 20 08 08 la 0. 6 PH bl 5 AR e MG MA CY TA BL OF ET CY NT HI AN A ST 00 05 06 00 [...] Ac DE 09 -1 -[address] 96 t ti RA 20 3- 2- 00 SI 72 Av ve LL 39 20 20 DE ai 10 08 08 la XR 1 PH bl AR e 30 MA CY MG OF CA CY PS NT UL HI E AN A AD 54 04 04 00 [...] E NT HI AN A RI 50 02 04 00 30 30 EA 96 No Ac SP 45 -2 -[address] 94 t ti ER 80 5- 7- 00 SI 54 Av ve DA 30 20 20 DE ai L 20 08 08 la 0. 6 PH bl 5 AR e MG MA CY TA BL OF ET CY NT HI AN A ST 00 02 04 00 30 30 EA 96 No Ac RA 00 -2 -[address] 94 t ti TT 23 5- 7- 00 SI 53 Av ve ER 22 20 20 DE ai A 93 08 08 la 40 0 PH bl AR e MG MA CY CA PS OF UL CY E NT HI AN A AD 54 02 [...] UL HI E AN A AD 54 01 03 00 [...] DOS Code Location Performer Comment IM ADM 54840 [facility] PRQ ID 6 [facility] SUBQ/IM INC INC NJXS 1 VACCINE RADIOLOGI 79584 HAAKE BRA HAAKE BRA C EXAM 4 CHEST 2 VIEWS [facility]AL&[facility] 56301 BESSON BESSON DISCHARGE 3 JULIANN JULIANN DAY MANAGEMEN T 30 MIN/< ANES 28992 [facility] INTEG 3 ANESTH THUY MUSC & OF THE NRV HEAD BLUE NECK&POST ERIOR TRUNK INCISION 96320 JONATHANSTBRADY CASTILLOJILLIAN & 3 ROSE ROSE DRAINAGE PILONIDAL CYST COMPLICAT ED SBSQ 83356 [facility] 3 JR MELINDA LAWRENCE CARE/DAY 25 MINUTES INITIAL 47622 [facility] 3 JR MELINDA LAWRENCE CARE/DAY 50 MINUTES INCISION 8603 [facility] OF 3 [facility] PILONIDAL INC INC SINUS OR CYST INCISION 49301 JONATHANBRADY PUJA & 1 ROSE ROSE DRAINAGE ABSCESS SIMPLE/SI NGLE HEPATBL 46495 [facility] JUNAID DUX SYS 0 [place]ICAL [place] [address] [facility] JUNAID ABDOMINAL 0 MEDICAL ZENA REAL IMAGING TIME ASS W/IMAGE DOCUMENTA TION SUSCEPTIB 71878 [facility] ILITY 9 [facility] STUDY INC INC ANTIMICRO BIAL DISK METHOD SUSCEPTIB 44374 [facility] LTY STDY 9 [facility] ANTIMICRB INC INC IAL MICRO/AGA R DILUTJ CUL BACT 83129 [facility] XCPT 9 [facility] URINE INC INC BLOOD/STO OL AEROBIC ISOL CUL BACT 18442 [facility] AEROBIC 9 [facility] ADDL INC INC METHS DEFINITIV E EA ISOL OPHTH 54814 [facility] 9 VISION KYLE [place] XM&EVAL ALYSON NEW PT 1/> VST Encounters Encounter Start End Date Code Location Performer Type Date OFFICE 21124 JODY KERI MIS OUTPATIEN 6 6 [facility] T VISIT INTERNAL 15 MED [facility] 6 6 [facility] OUTPATI[facility] INC T EMERGENCY 69189 LETA BROWN 6 6 [facility] T VISIT MODERATE SEVERITY EMERGENCY 84043 [facility] 6 6 [facility] DEPARTMEN INC T VISIT LOW/MODER SEVERITY OFFICE 89558 [facility]AMIE OUT[facility]IEN 4 4 [facility] ANGELES T VISIT INTERNAL 15 MED MINUTES OFFICE 27476 [facility] JAMIE OUTPATIEN 4 4 [facility] ANGELES T VISIT INTERNAL 15 MED MINUTES EMERGENCY 89713 HAAKE BRA HAAKE BRA 4 4 DEPARTMEN T VISIT HIGH/URGE NT SEVERITY OFFICE 06369 JAMIE JAMIE OUTPATIEN 3 3 ANGELES ANGELES T VISIT 15 MINUTES OFFICE 80275 [facility] 3 3 [facility] T VISIT 5 INC MINUTES [facility]OSPITAL [facility] - 3 3 [facility] OUTPATIEN INC T OFFICE 33867 [facility] 3 3 [facility] T VISIT 5 INC MINUTES [facility] 3 [facility] OUTPATIEN INC T [facility] 3 3 [facility] OUTPATIEN INC T OFFICE 37907 [facility] 3 3 [facility] T VISIT 5 INC MINUTES OFFICE 63836 [facility] 3 3 [facility] T VISIT INC 10 MINUTES OFFICE 26497 [facility] 3 3 [facility] T VISIT 5 INC MINUTES [facility]OSP[facility] 3 [facility] OUTPATIEN INC T OFFICE 39265 [facility] 3 3 [facility] T VISIT 5 INC MINUTES [facility] 3 [facility] OUTPATIEN INC T [facility] 3 3 [facility] OUTPATIEN INC T OFFICE 04982 [facility] 3 3 [facility] T VISIT 5 INC MINUTES [facility] 3 [facility] OUTPATIEN INC T OFFICE 46117 [facility] 3 3 [facility] T VISIT 5 INC MINUTES OFFICE 89519 [facility] 3 3 [facility] T VISIT 5 INC MINUTES [facility]OSPITAL [facility] 3 [facility] OUTPATIEN INC T OFFICE 72140 [facility] 3 3 [facility] T VISIT INC 10 MINUTES [facility]OSPITAL [facility] 3 [facility] OUTPATIEN INC T OFFICE 55484 [facility] 3 3 [facility] T VISIT 5 INC MINUTES OFFICE 59576 [facility] 3 3 [facility] T VISIT 5 INC MINUTES [facility]OSP[facility] 3 3 [facility] OUTPATIEN INC T OFFICE 54441 [facility] 3 3 [facility] T VISIT 5 INC MINUTES [facility]OS[facility] 3 3 [facility] OUTPATIEN INC T OFFICE 51523 [facility] 3 3 [facility] T VISIT 5 INC MINUTES [facility]OSP[facility] 3 3 [facility] OUTPATIEN INC T OFFICE 69069 [facility] 3 3 [facility] T VISIT INC 15 MINUTES [facility]OSPITAL [facility] 3 [facility] OUTPATIEN INC T OFFICE 09109 [facility] 3 3 [facility] T VISIT INC 10 MINUTES [facility]OSP[facility] 3 [facility] INPATIENT INC OFFICE 32166 [facility] PLATA OUTPATIEN 2 2 NAN NAN T VISIT 15 MINUTES OFFICE 07885 [facility] PLATA OUTPATIEN 2 2 NAN NAN T VISIT 15 MINUTES OFFICE 51301 SCHULSTAD SCHULSTAD OUTPATIEN 2 2 ROSE ROSE T VISIT 10 MINUTES EMERGENCY 61134 [facility] 1 1 [facility] DEPARTMEN INC T VISIT LOW/MODER SEVERITY EMERGENCY 26058 ANDRES KO BAB 1 [facility] VIS[facility] MODERATE SEVERITY [facility] - 1 1 [facility] OUTPATIEN INC T OFFICE 34492 [facility] JAMIE OUTPATIEN 1 1 WILLIAMS ANGELES T VISIT INTERNAL 15 MEDI MINUTES HOSPITAL [facility] - 0 0 [facility] OUTPATIEN INC [facility] 0 0 [facility] OUTPATIEN INC T OFFICE 32361 [facility] BONI OUTPATIEN 0 0 WILLIAMS JENNIFER T VISIT INTERNAL 15 MEDI MINUTES HOSPITAL [facility] - 9 9 [facility] OUTPATIEN INC T OFFICE 82238 [facility] PEGROSAURAE OUTPATIEN 9 9 [facility], T VISIT INTERNAL JOSSUE F 15 MED MINUTES OFFICE 29317 [facility] BESSON, OUTPATIEN 9 9 WILLI[facility] JUAN A A T VISIT INTERNAL 15 MED MINUTES OFFICE 46266 [facility] BESSON, OUTPATIEN 9 9 WILLIAMS JUAN A A T VISIT INTERNAL 15 MED MINUTES OFFICE 15747 [facility] BESSON, OUTPATIEN 8 8 [facility] JUAN A A T VISIT INTERNAL 15 MED MINUTES OFFICE 54178 [facility] BESSON, OUTPATIEN 8 8 WILLIAMS JUAN A A T VISIT INTERNAL 15 MED MINUTES
--- OUTSIDE RECORDS SUMMARY | 2016-11-28 03:32 | External Medical Summary Rpt ---
Author Author , JOEL MALDONADO Address Unknown Phone [email or web address] Team Providers Care Admissions Clinician Name Role Phone ELIO GOLDMAN Unavailable Unavailable JUAN A [place], Unavailable Unavailable [facility] Unavailable Unavailable [facility], [facility] JUNAID ZENA, Unavailable Unavailable JUNAID ZENA SAAVEDRA MIS, SAAVEDRA MIS Unavailable Unavailable [facility] Unavailable [place]available [place], [facility] [place] [facility] Unavailable [place] [facility] JAMIE ANGELES, Unavailable Unavailable JAMIE ANGELES STEPHANIE TONYA, STEPHANIE Unavailable Unavailable TONYA HAAKE BRA, HAAKE BRA Unavailable Unavailable HAAKE BRA, HAAKE BRA Unavailable Unavailable [facility], [facility] BONI NAN, BONI Unavailable Unavailable NAN BONI NAN, BONI Unavailable Unavailable [facility] [place] Unavailable [facility]available [facility] [place] Unavailable Unavailable [facility], [facility] INTER[facility]I [facility] Unavailable Unavailable SERVICES, [facility] CAMILLE LAWRENCE, Unavailable Unavailable JOSSUE [...] 11-16-2015 [facility] [place] [facility] INTER[facility] MED [id number] OPEN BITE 08-29-2015 [facility] FINGER W/O INC DAMAGE NAIL INIT [id number] OPEN BITE 08-29-2015 [facility], W/[facility] DAMAGE PLLC NAIL INITIAL 1104 DERMATOPHYT 01-27-2014 [facility] OF [facility] FOOT INTERNAL MED 6829 CELLULITIS 01-27-2014 [facility] AND ABSCESS VAL[facility] OF INTERNAL UNSPECIFIED MED SITE 57847 UNSPECIFIED 10-14-2013 [facility] CONJUNCTIVI INTERNAL TIS MED 4778 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 486 PNEUMONIA, 07-26-2013 HAAKE BRA ORGANISM UNSPECIFIED 7862 COUGH 07-26-2013 [facility] 6850 PILONIDAL 04-11-2012 [facility] WITH [facility] ABSCESS INC 6851 PILONIDAL 03-28-2012 [facility] CYST ANESTH OF WITHOUT THE BLUE MENTION OF ABSCESS 460 ACUTE 07-20-2011 [facility] RODRIGUEZ NASOPHARYNG ITIS 490 BRONCHITIS 07-20-2011 [facility] RODRIGUEZ NOT SPECIFIED ACUTE OR CHRONIC 5589 OTH&UNSPEC 05-08-2011 [facility] RODRIGUEZ NONINFECTIO US GASTROENTER ITIS&COLITI S V5831 ENCOUNTER 02-14-2011 [facility] SURGICAL WOUND DRESSING 02439 ABDOMINAL 11-08-2010 [facility] PAIN RIGHT VALLEY UPPER INTERNAL QUADRANT MEDI 5758 OTHER 10-06-2009 [facility] SPECIFIED [facility] DISORDER OF INC GALLBLADDER 5759 UNSPECIFIED 10-06-2009 [facility] IMAGING ASS GALLBLADDER 68734 ESOPHAGEAL 09-19-2009 [facility]UX [facility] INC 7873 FLATULENCE 09-19-2009 [facility] ERUCTATION [facility] AND GAS INC PAIN 5283 CELLULITIS 02-04-2009 [facility] AB[place]ESS [facility] OF ORAL INTERNAL SOFT MED TISSUES 19096 REGULAR 01-21-2009 [facility] ASTIGMATISM VISION 3829 UNSPECIFIED [...] 17 17 98 E 5 55 PH PA AR OP MA CY 50 OF MC [...] UM 65 4- 8- 00 SI 46 NC ve 04 [address] 03 11 11 JR 1 PH 40 AR WI MA LL MG CY IA M CA OF F PS UL CY E NT HI AN A AD 54 10 10 0 30 30 EA 24 MC Ac DE 09 -2 -[address] 67 KE ti RA 20 4- 6- 00 SI 38 NC ve LL 39 20 20 DE E 10 11 11 JR XR 1 PH AR WI 30 MA LL CY IA MG M OF F CA PS CY UL NT E HI AN A RI 50 10 10 3 30 30 EA 24 MC Ac SP 45 -2 -[address] 63 KE ti ER 80 4- 4- 00 SI 23 NC ve ID 59 20 20 DE E [...] RA 20 6- 6- 00 SI 61 NC ve LL 39 20 20 DE E 10 11 11 JR XR 1 PH AR WI 30 MA LL CY IA MG M OF F CA PS CY UL NT E HI AN A RI 50 07 07 3 30 30 EA 23 MC Ac SP 45 -1 -[address] 30 KE ti ER 80 4- 4- 00 SI 45 NC ve ID 59 20 20 DE E ON 16 11 11 JR E 0 PH 0. AR WI 5 MA LL MG CY IA M TA OF F BL ET CY NT HI AN A NE 00 07 07 3 30 30 EA 23 MC Ac XI 18 -1 -[address] 30 KE ti UM 65 4- 4- 00 SI 46 NC ve 04 [address] [...] RA 20 4 4 00 SI 30 NC ve LL 39 20 20 DE E [...] ti RA 20 9- 6 SI 69 NC ve LL 39 20 20 DE E 10 10 10 JR XR 1 PH AR WI 30 MA LL CY IA MG M OF F CA CY PS NT UL HI E AN A ST 00 12 01 00 30 30 EA 15 MC Ac RA 00 -2 -[address] 74 KE ti TT 23 8- 4- 00 SI 69 NC ve ER 22 20 20 DE E A 93 09 10 JR 40 0 PH AR WI MG MA LL CY IA CA M PS OF F UL CY E NT HI AN A RI 50 12 01 00 30 30 EA 15 Ac SP 45 -2 -[address] 74 KE ti ER 80 8- 4 00 SI 70 NC ve ID 59 20 20 DE E ON 16 09 10 JR E 0 PH 0. AR WI 5 MA LL MG CY IA M TA OF F BL CY ET NT HI AN A AD 54 12 01 00 30 30 EA 15 MC Ac DE 09 -2 -[address] 76 KE ti RA 20 9- 4 00 SI 17 NC ve LL 39 20 20 DE E 10 09 10 JR XR 1 PH AR WI 30 MA LL CY IA MG M OF F CA CY PS NT UL HI E AN A 00 12 12 00 20 10 EA 15 MC Ac 90 -1 -[address] 64 KE ti 42 8- 1- 00 SI 12 NC ve 72 20 20 DE E 54 09 09 JR 0 PH AR WI MA LL CY IA M OF F CY NT HI AN A MU 00 12 12 00 22 10 EA 15 MC Ac PI 09 -1 -[address] 64 KE ti RO 31 8- 1- 00 SI 13 NC ve CI 01 20 20 DE E [...] -C 32 7- 3- 00 SI 04 NC ve LA 27 20 20 DE E V 53 09 09 JR 87 4 PH 5- AR WI 12 MA LL 5 CY IA MG M OF F TA CY BL NT ET HI AN A AD 54 11 11 00 30 30 EA 15 MC Ac DE 09 -0 -[address] 04 KE ti RA 20 9- 9- 00 SI 70 NC ve LL 39 20 20 DE E 10 09 09 JR XR 1 PH AR WI 30 MA LL CY IA MG M OF F CA CY PS NT UL HI E AN A AD 54 09 10 00 30 30 EA 14 MC Ac DE 09 -2 -[address] 43 KE ti RA 20 6- 8- 00 SI 63 NC ve LL 39 20 20 DE E 10 09 09 JR XR 1 PH AR [place] 30 MA LL CY IA MG M OF F CA CY PS NT UL HI E AN A AD 54 08 08 00 30 30 EA 13 MC Ac DE 09 -1 -[address] 91 KE ti RA 20 9- 7- 00 SI 63 NC ve LL 39 20 20 DE E 10 09 09 JR XR 1 PH AR [place] 30 MA LL CY IA MG M OF F CA CY PS NT UL HI E AN A ST 00 08 08 00 30 30 EA 13 MC Ac RA 00 -1 -[address] 84 KE ti TT 23 4- 7- 00 SI 93 NC ve ER 22 20 20 DE E A 93 09 09 JR 40 0 PH AR WI MG MA LL CY IA CA M PS OF F UL CY E NT HI AN A RI 50 08 08 00 30 30 EA 13 MC Ac SP 45 -1 -[address] 84 KE ti ER 80 4- 7- 00 SI 94 NC ve ID 59 20 20 DE E ON 16 09 09 JR E 0 PH 0. AR WI 5 MA LL MG CY IA M TA OF F BL CY ET NT HI AN A AD 54 06 07 00 30 30 EA 13 MC Ac DE 09 -1 -[address] 18 KE ti RA 20 8- 2- 00 SI 66 NC ve LL 39 20 20 DE E 10 09 09 JR XR 1 PH AR [place] 30 MA LL CY IA MG M OF F CA CY PS NT UL HI E AN A ST 00 01 06 02 30 30 EA 11 Ac RA 00 -1 -[address] 12 KE ti TT 23 6- 8- 00 SI 68 NC ve ER 22 20 20 DE E A 93 09 09 JR 40 0 PH AR WI MG MA LL CY IA CA M PS OF F UL CY E NT HI AN A RI 50 06 06 00 30 30 EA 13 Ac SP 45 -0 -[address] 04 KE ti ER 80 7- 8- 00 SI 65 NC ve ID 59 20 20 DE E ON 16 09 09 JR E 0 PH 0. AR WI 5 MA LL MG CY IA M TA OF F BL CY ET NT HI AN A AD 54 05 05 00 30 30 EA 12 Ac DE 09 -0 -[address] 65 KE ti RA 20 7- 1- 00 SI 25 NC ve LL 39 20 20 DE E 10 09 09 JR XR 1 PH AR WI 30 MA LL CY IA MG M OF F CA CY PS NT UL HI E AN A ST 00 01 05 01 30 30 EA 11 Ac RA 00 -1 -[address] 12 KE ti TT 23 6- 7- 00 SI 68 NC ve ER 22 20 20 DE E A 93 09 09 JR 40 0 PH AR WI MG MA LL CY IA CA M PS OF F UL CY E NT HI AN A RI 50 05 05 02 30 30 EA 98 Ac SP 45 -2 -[address] 05 KE ti ER 80 0- 7- 00 SI 91 NC ve ID 59 20 20 DE E ON 16 08 09 JR E 0 PH 0. AR WI 5 MA LL MG CY IA M TA OF F BL CY ET NT HI AN A DE 00 04 04 00 30 30 EA 12 Ac XT 55 -0 -[address] 21 KE ti RO 50 6- 3- 00 SI 75 NC ve AM 78 20 20 DE E P- 90 09 09 JR AM 2 PH PH AR WI ET MA LL CY IA ER M OF F 30 CY NT MG HI AN CA A P NA 00 03 03 00 17 17 EA 11 Ac SO 08 -0 -[address] 73 KE ti NE 51 3- 2- 00 SI 06 NC ve X 28 20 20 DE E 50 80 09 09 JR 1 PH MC AR WI G MA LL NA CY IA SA M L OF F SP CY RA NT Y HI AN A AD 54 02 03 00 30 30 EA 11 MC Ac DE 09 -2 -[address] 60 KE ti RA 20 4- 2- 00 SI 65 NC ve LL 39 20 20 DE E 10 09 09 JR XR 1 PH AR WI 30 MA LL CY IA MG M OF F CA CY PS NT UL HI E AN A 67 03 03 00 20 10 EA 11 MC Ac 25 -0 -[address] 73 KE ti 30 3- 2- 00 SI 07 NC ve 00 20 20 DE E 76 09 09 JR 0 PH AR WI MA LL CY IA M OF F CY NT HI AN A 00 02 02 00 3. 3 EA 11 Ac 09 -1 -[address] 50 KE ti 39 6- 6- 0 SI 39 NC ve 10 20 20 DE E 72 09 09 JR 9 PH AR WI MA LL CY IA M OF F CY NT HI AN A SM 49 01 01 00 59 1 EA 11 Ac 34 -2 -[address] 21 KE ti LI 80 3- 0- 00 SI 44 NC ve CE 46 20 20 DE E [...] RA 20 6- 0- 00 SI 67 NC ve LL 39 20 20 DE E 10 09 09 JR XR 1 PH AR WI 30 MA LL CY IA MG M OF F CA CY PS NT UL HI E AN A ST 00 01 01 00 30 30 EA 11 Ac RA 00 -1 -[address] 12 KE ti TT 23 6- 0- 00 SI 68 NC ve ER 22 20 20 DE E [...] RA 20 8- 8- 00 SI 37 NC ve LL 39 20 20 DE E 10 08 08 JR XR 1 PH AR WI 30 MA LL CY IA MG M OF F CA CY PS NT UL HI E AN A MU 00 10 11 00 22 7 EA 99 MC Ac PI 09 -2 -[address] 96 KE ti RO 31 2- 7- 00 SI 61 NC ve CI 01 20 20 DE E N 04 08 08 JR 2% 2 PH AR WI OI MA LL NT CY IA ME M NT OF F CY NT HI AN A BE 00 10 11 00 60 5 EA 10 MC Ac TA 16 -3 -[address] 07 KE ti ME 80 0- 7- 00 SI 35 NC ve TH 04 20 20 DE E 16 08 08 JR ON 0 PH E AR WI VA MA LL CY IA 0. M 1% OF F CY LO NT TI HI ON AN A AD 54 10 11 00 30 30 EA 10 MC Ac DE 09 -2 -[address] 06 KE ti RA 20 9- 7- 00 SI 25 NC ve LL 39 20 20 DE E [...] DOS Code Location Performer Comment IM ADM 16847 [facility] PRQ ID 6 [facility] SUBQ/IM INC INC NJXS 1 VACCINE RADIOLOGI 48193 HAAKE BRA HAAKE BRA C EXAM 4 CHEST 2 VIEWS FRONTAL&L [facility] 19751 BESSON BESSON DISCHARGE 3 JULIANN JULIANN DAY MANAGEMEN T 30 MIN/< ANES 49298 [facility] INTEG 3 ANESTH THUY MUSC & OF THE NRV HEAD BLUE NECK&POST ERIOR TRUNK INCISION 49720 JONATHANSTBRADY CASTILLOJILLIAN & 3 ROSE ROSE DRAINAGE PILONIDAL CYST COMPLICAT ED SBSQ 79467 [facility] 3 JR MELINDA LAWRENCE CARE/DAY 25 MINUTES INITIAL 71224 [facility] 3 JR MELINDA LAWRENCE CARE/DAY 50 MINUTES INCISION 8603 [facility] OF 3 [facility] PILONIDAL INC INC SINUS OR CYST INCISION 15226 JONATHANBRADY PUJA & 1 ROSE ROSE DRAINAGE ABSCESS SIMPLE/SI NGLE HEPATBL 82895 [place] D[facility] SYS 0 [place]ICAL [place] [address] [place] [facility] ABDOMINAL 0 MEDICAL ZENA REAL IMAGING TIME ASS W/IMAGE DOCUMENTA TION SUSCEPTIB 12511 [facility] ILITY 9 [facility] STUDY INC INC ANTIMICRO BIAL DISK METHOD SUSCEPTIB 73021 [facility] LTY STDY 9 [facility] ANTIMICRB INC INC IAL MICRO/AGA R DILUTJ CUL BACT 37734 [facility] XCPT 9 [facility] URINE INC INC BLOOD/STO OL AEROBIC ISOL CUL BACT 69609 [facility] AEROBIC 9 [facility] ADDL INC INC METHS DEFINITIV E EA ISOL OPHTH 00146 [facility] 9 VISION KYLE [place] XM&EVAL ALYSON NEW PT 1/> VST Encounters Encounter Start End Date Code Location Performer Type Date OFFICE 76668 JODY KERI MIS OUTPATIEN 6 6 [facility] T VISIT INTERNAL 15 MED [facility] - 6 6 [facility] T EMERGENCY 17289 LETA BROWN 6 6 [facility] T VISIT MODERATE SEVERITY EMERGENCY 72215 [facility] 6 6 [facility] T VISIT LOW/MODER SEVERITY OFFICE 21131 [facility] JAMIE OUTPATIEN 4 4 [place] ANGELES T VISIT INTERNAL 15 MED MINUTES OFFICE 25472 [facility] JAMIE OUTPATIEN 4 4 [place] ANG[place]ES T VISIT INTERNAL 15 MED MINUTES EMERGENCY 04423 HAAKE BRA HAAKE BRA 4 4 DEPARTMEN T VISIT HIGH/URGE NT SEVERITY OFFICE 64229 JAMIE JAMIE OUTPATIEN 3 3 ANGELES ANGELES T VISIT 15 MINUTES OFFICE 73872 [facility] 3 3 [facility] T VISIT 5 INC MINUTES [facility]OSP[facility] - 3 3 [facility] OUTPATIEN INC T OFFICE 92859 [facility] 3 3 [facility] T VISIT 5 INC MINUTES [facility] 3 3 [facility] OUTPATIEN INC T [facility] 3 3 [facility] OUTPATIEN INC T OFFICE 08314 [facility] 3 3 [facility] T VISIT 5 INC MINUTES OFFICE 90595 [facility] 3 3 [facility] T VISIT INC 10 MINUTES OFFICE 72477 [facility] 3 3 [facility] T VISIT 5 INC MINUTES [facility]OSP[facility] - 3 3 [facility] OUTPATIEN INC T OFFICE 85779 [facility] 3 3 [facility] T VISIT 5 INC MINUTES [facility] 3 [facility] OUTPATIEN INC T [facility] 3 3 [facility] OUTPATIEN INC T OFFICE 11703 [facility] 3 3 [facility] T VISIT 5 INC MINUTES [facility] 3 3 [facility] OUTPATIEN INC T OFFICE 94457 [facility] OUT[facility] 3 3 [facility] T VISIT 5 INC MINUTES OFFICE 65779 [facility] OUT[facility]EN 3 3 [facility] T VISIT 5 INC MINUTES [facility]OSPITAL [facility] 3 3 [facility] OUTPATIEN INC T OFFICE 02686 [facility] 3 3 [facility] T VISIT INC 10 MINUTES [facility]OSPITAL [facility] - 3 3 [facility] OUTPATIEN INC T OFFICE 50854 [facility] 3 3 [facility] T VISIT 5 INC MINUTES OFFICE 71181 [facility] 3 3 [facility] T VISIT 5 INC MINUTES [facility]OSPITAL [facility] - 3 3 [facility] OUTPATIEN INC T OFFICE 68086 [facility] 3 3 [facility] T VISIT 5 INC MINUTES [facility] - 3 3 [facility] OUTPATIEN INC T OFFICE 47175 [facility] 3 3 [facility] T VISIT 5 INC MINUTES [facility]OSPITAL [facility] - 3 3 [facility] OUTPATIEN INC T OFFICE 88575 [facility] 3 3 [facility] T VISIT INC 15 MINUTES [facility]OSPITAL [facility] - 3 3 [facility] OUTPATIEN INC T OFFICE 56000 [facility]PATIEN 3 3 [facility] T VISIT INC 10 MINUTES [facility]OSP[facility] 3 3 [facility] INPATIENT INC OFFICE 01233 [facility] OUTPATIEN 2 2 NAN NAN T VISIT 15 MINUTES OFFICE 04517 [facility] OUTPATIEN 2 2 NAN NAN T VISIT 15 MINUTES OFFICE 68871 SCHULSTAD SCHULSTAD OUTPATIEN 2 2 ROSE ROSE T VISIT 10 MINUTES EMERGENCY 70739 [facility] 1 1 [facility] DEPARTMEN INC T VISIT LOW/MODER SEVERITY EMERGENCY 38146 ANDRES KO BAB 1 [facility] MODERATE SEVERITY [facility] 1 1 [facility] OUTPATIEN INC T OFFICE 31654 [facility] JAMIE OUTPATIEN 1 1 [place] ANGELES T VISIT INTERNAL 15 MEDI MINUTES [facility]OSPITAL [facility] - 0 0 [facility] OUTPATIEN INC [facility] 0 0 [facility] OUTPATIEN INC T OFFICE 28412 [facility] BONI OUTPATIEN 0 0 [place] JENNIFER T VISIT INTERNAL 15 MEDI MINUTES HOSPITAL [facility] - 9 9 [facility] OUTPATIEN INC T OFFICE 48397 [facility] PEGROSAURAE OUTPATIEN 9 9 [facility], T VISIT INTERNAL JOSSUE F 15 MED MINUTES OFFICE 62064 [facility] BESSON, OUTPATIEN 9 9 [place] JUAN A A T VISIT INTERNAL 15 MED MINUTES OFFICE 10141 [facility] BESSON, OUTPATIEN 9 9 [place] JUAN A A T VISIT INTERNAL 15 MED MINUTES OFFICE 05858 [facility], OUTPATIEN 8 8 [facility] T VISIT INTERNAL 15 MED MINUTES OFFICE 57490 [facility] B[facility]ON, OUTPATIEN 8 8 [place] JUAN A A T VISIT INTERNAL 15 MED MINUTES
--- OUTSIDE RECORDS SUMMARY | 2016-11-28 03:33 | External Medical Summary Rpt ---
Author Author , JOEL MALDONADO Address Unknown Phone [email or web address] Immunization Name Date Rout CVX Reac Dose Comm Prov Is Faci e tion ent ider Refu lity Give sed n Td 07-1 9 999 Hist H149 No H149 (conrado 9-20 oric lt), 05 al Info adso rmat rbed ion - Sour ce Unsp ecif ied Vari 11-1 21 999 Hist H149 No H149 cell 0-19 oric a 98 al Info rmat ion - Sour ce Unsp ecif ied MMR 10-2 3 999 Hist H149 No H149 4-19 oric 96 al Info rmat ion - Sour ce Unsp ecif ied Librado 10-2 2 999 Hist H149 No H149 o-OP 4-19 oric V 96 al Info rmat ion - Sour ce Unsp ecif ied DTaP 10-2 107 999 Hist H149 No H149 , UF 4-19 oric 96 al Info rmat ion - Sour ce Unsp ecif ied
--- OUTSIDE RECORDS SUMMARY | 2016-11-28 03:33 | External Medical Summary Rpt ---
Author Author , JOEL MALDONADO Address Unknown Phone Immunization Name Date Rout CVX Reac Dose [...]
== END 2016-11-05 13:32 | disposition home or self-care (01) ==
LOC: UTC 11:13
DX: J30.2 Other seasonal allergic rhinitis (principal); F17.210 Nicotine dependence, cigarettes, uncomplicated; Z79.899 Other long term (current) drug therapy